=== PATIENT | male | born 1985 | race Caucasian/White ===

== ENCOUNTER 2016-10-29 17:25 | Emergency (ER) | payer SELFPAY ==
[2011-12-28 09:01] VITALS: BP 129/86
== END 2016-10-29 17:45 | disposition left against medical advice (07) ==
LOC: ED 17:25 → MERGE 17:25 → ED 17:45
DX: Z53.9 Procedure and treatment not carried out, unspecified reason (principal)

== ENCOUNTER 2016-10-29 19:16 | Emergency (ER) | payer OTHER ==
[2016-10-29] MEDS ORDERED: DECADRON 10MG INJ. IM ONE (20:04)
[2016-10-29] MEDS ORDERED: Augmentin 875-125 Tablet PO ONE (20:04)
[2016-10-29] MEDS ORDERED: Augmentin 875-125 Tablet ONE (20:07)
[2016-10-29] MEDS ORDERED: DECADRON 10MG INJ. ONE (20:07)
--- NOTE | 2016-10-29 20:09 | ERPHSYRPT ---
- History of Present Illness Time Seen by Provider: 10/29/16 19:49 Source: patient Patient Subjective Stated Complaint: pt has had a sore throat for 2 days -he has taken throat spray and his vicodin without relief -no fever no vomiting no other symptoms Triage Nursing Assessment: pt is awake and alert and alb eot answer questions Physician History: CC: sore throat Hx: 31 y/o patient of Dr Lo. He has sore throat for couple of days. No fever, trouble breathing, or swallowing. He had prior tonsil abscess remotely. No allergies. Used vicodin for pain. He works [employer]. He thinks he got this when he took a coworker to the ER. ENT Location: throat Allergies/Adverse Reactions: No Known Drug Allergies Allergy (Verified 05/26/15 14:17) Home Medications: Dextroamphetamine/Amphetamine [Adderall 20 mg Tablet] 20 mg PO DAILY 05/26/15 [ History] Hydrocodone/APAP 10/325 mg [[place] 10/325 MG Tablet] 1 tab PO UD 05/26/15 [ History] Hx Tetanus, Diphtheria Vaccination/Date Given: Yes (1 year) Hx Influenza Vaccination/Date Given: No Hx Pneumococcal Vaccination/Date Given: No Immunizations Up to Date: No - Review of Systems Constitutional: Malaise, No Fever, No Chills Ears, Nose, & Throat: Throat Pain Respiratory: No Cough Abdominal/Gastrointestinal: No Nausea, No Vomiting, No Diarrhea Skin: No Rash Neurological: No Headache All Other Systems: Reviewed and Negative - Past Medical History Pertinent Past Medical History: Yes Neurological History: No Pertinent History ENT History: Other Cardiac History: No Pertinent History Respiratory History: No Pertinent History Endocrine Medical History: No Pertinent History Musculoskeletal History: Other GI Medical History: No Pertinent History Psycho-Social History: Attention Deficit Disorder Other Medical History: back problems - Past Surgical History Past Surgical History: Yes Musculoskeletal: Orthopedic Surgery - Social History Smoking Status: Current every day smoker How long have you smoked: 9 Exposure to second hand smoke: Yes Alcohol Use: None Drug Use: marijuana Patient Lives Alone: No - Nursing Vital Signs Nursing Vital Signs: Initial Vital Signs Temperature 98.4 F 10/29/16 19:23 Pulse Rate 88 10/29/16 19:23 Respiratory Rate 18 10/29/16 19:23 Blood Pressure 147/84 10/29/16 19:23 O2 Sat by Pulse Oximetry 98 10/29/16 19:23 Pain Scale Pain Intensity 5 - Physical Exam General Appearance: alert Eye Exam: bilateral eye: PERRL, EOMI Nasal Exam: normal inspection Throat Exam: moist mucus membranes, pharynx swelling (minimal worse on right, uvula midline, no apparent abscess, red), tonsillar exudate Neck Exam: normal inspection, non-tender, supple Cardiovascular/Respiratory Exam: chest non-tender, normal breath sounds, regular rate/rhythm Neurologic Exam: alert, oriented x 3, cooperative Skin Exam: warm, dry, No rash SpO2: 98 Oxygen Delivery: Room Air - Course Nursing assessment & vital signs reviewed: Yes Ordered Tests: Active Orders 24 hr Category Date Time Status CULTURE, THROAT Stat Lab 10/29/16 19:40 Received STREP SCREEN-BETA A Stat Lab 10/29/16 19:40 Completed Medication Summary Generic Name Dose Route Start Last Admin Trade Name Hiraq PRN Reason Stop Dose Admin Amoxicillin/Clavulanate Potassium 875 mg 10/29/16 20:04 Augmentin 875-125 Tablet PO 10/29/16 20:05 STAT ONE Dexamethasone Sodium Phosphate 10 mg 10/29/16 20:04 Decadron 10mg Inj. IM 10/29/16 20:05 STAT ONE Lab/Rad Data: Laboratory Results 10/29/16 Range/Units 19:40 Streptococcus Screen NEGATIVE (Negative) - Progress Progress Note: 10/29/16 20:07 IM decadron given. Rx augmentin. Instr given. Counseled pt/family regarding: diagnosis, need for follow-up - Departure Time of Disposition: 20:07 Departure Disposition: Home Clinical Impression: Acute pharyngitis Qualifiers: Pharyngitis/tonsillitis etiology: unspecified etiology Qualified Code(s): J02.9 - Acute pharyngitis, unspecified Condition: Stable Critical Care Time: No Referrals: JOEY LO [Primary Care Provider] - Instructions: Pharyngitis/Tonsillopharyngitis -- Adult Additional Instructions: Rx augmentin. Tylenol or ibuprofen as directed for discomfort. Return for hoarse voice, trouble breathing, trouble swallowing, or concerns. Prescriptions: Amox Tr/Potass Clav. 875 mg [Augmentin 875-125 Tablet] 1 each PO BID #20 tablet
[2016-10-29 20:30] VITALS: BP 129/78; PULSE 70; O2SAT 99
== END 2016-10-29 20:30 | disposition home or self-care (01) ==
LOC: ED 19:16
DX: J02.9 Acute pharyngitis, unspecified (principal)
CPT/HCPCS: 87070; 87430; 96372; 99284; J1100; A9270-GY